=== PATIENT | female | born 1995 | race Caucasian/White ===

== ENCOUNTER 2017-03-19 09:41 | Emergency (ER) | payer BC ==
[~2017-03-19] VITALS: Ht 154.9 cm; Wt 52.2 kg
[2017-03-19] MEDS ORDERED: ZYRTEC10 M2 PO (11:00)
[2017-03-19] MEDS ORDERED: NAPROSYN500 MG PO (11:20)
[2017-03-19 11:43] VITALS: BP 110/69
== END 2017-03-19 11:45 | disposition home or self-care (01) ==
LOC: EME 09:41
DX: M25.511 Pain in right shoulder (principal); V18.0XXA Pedal cycle driver injured in noncollision transport accident in nontraffic accident, initial encounter; Y93.55 Activity, bike riding; Z88.1 Allergy status to other antibiotic agents
CPT/HCPCS: 73030; 99281; 99283